=== PATIENT | female | born 1945 | race African-American/Black ===

== ENCOUNTER 2018-07-22 13:53 | Inpatient (IN) | payer MEDICARE, MEDICAID ==
[~2018-07-22] VITALS: Ht 320 cm; Wt 84.4 kg
[~2018-07-22 13:53] MED LIST: AMLO10TA4 PO; ASPI-1073 PO; CLON1PAT11 TD; DOCU-155 PO; GABA-529 PO; LISI-604 PO; OMEP40CA PO; SIMV20TA6 PO; TRAM50TA3 PO
[2018-07-22] MEDS ORDERED: FAMOTIDINE 20MG/2ML VIAL IV ONE (14:15)
[2018-07-22] MEDS ORDERED: ONDANSETRON HCL 4MG/2ML INJ IV STA (14:15)
[2018-07-22] MEDS ORDERED: SODIUM CHLORIDE 0.9% 1,000 ML IV ONE (14:15)
[2018-07-22] MEDS ORDERED: MORPHINE SULFATE 10 MG/ML CPJ IV ONE (14:15)
[2018-07-22 16:08] LABS: HEMATOCRIT. 44.1 % (36.0-48.0); HEMOGLOBIN. 14.7 g/dL (12.0-16.0); MEAN CORPUSCULAR HEMOGLOBIN 30.4 pg (28.0-32.0); MEAN CORPUSCULAR VOLUME 91.4 fL (81.0-99.0); MEAN PLATELET VOLUME 8.9 fl (7.4-10.4); PLATELET 247 x1000/uL (130-400); RED BLOOD CELL COUNT 4.83 mill/uL (4.2-5.4); RED CELL DISTRIBUTION WIDTH 14.8 % (11.6-14.6)
[2018-07-22 16:14] LABS: INR 1.1; PROTHROMBIN TIME 10.7 sec (9.1-11.1)
[2018-07-22 16:15] LABS: CHLORIDE 108 mEq/L (98-107)
[2018-07-22 16:18] LABS: ETHANOL BLOOD < 10 mg/dL
[2018-07-22] MEDS ORDERED: HYDRALAZINE 20MG/ML VIAL IV ONE (16:30)
[2018-07-22] MEDS ORDERED: ASPIRIN 81MG TABLET PO ONE (16:30)
[2018-07-22] MEDS ORDERED: ONDANSETRON HCL 4MG/2ML INJ IV ONE (16:30)
[2018-07-22 16:44] LABS: PLATELET ESTIMATE NORMAL
[2018-07-22 17:10] LABS: CLARITY URINE CLEAR (CLEAR); COLOR URINE YELLOW (YELLOW); KETONES URINE 2+ (NEGATIVE); LEUKOCYTE ESTERASE URINE 1+ (NEGATIVE); NITRITE URINE NEGATIVE (NEGATIVE); OCCULT BLOOD URINE 2+ (NEGATIVE); PROTEIN URINE 2+ (NEGATIVE); UROBILINOGEN URINE 0.2 E.U./dL (0.2-1.0)
[2018-07-22 17:23] LABS: *AMPHETAMINES SCREEN URINE NEGATIVE (NEGATIVE); *BARBITURATES SCREEN URINE NEGATIVE (NEGATIVE); *BENZODIAZEPINES SCREEN URINE NEGATIVE (NEGATIVE); *COCAINE SCREEN URINE NEGATIVE (NEGATIVE)
[2018-07-22 17:24] LABS: CANNABINOID URINE SCREEN PRESUMTIVE POSITIVE (NEGATIVE); METHADONE URINE SCREEN NEGATIVE (NEGATIVE); OPIATES URINE SCREEN PRESUMTIVE POSITIVE (NEGATIVE); PHENCYCLIDINE URINE SCREEN NEGATIVE (NEGATIVE)
[2018-07-22 18:00] VITALS: BP 175/71
[2018-07-22 19:00] VITALS: BP 175/71
[2018-07-22] MEDS ORDERED: ACETAMINOPHEN 650MG SUPP PR PRN (19:45)
[2018-07-22] MEDS ORDERED: DIPHENHYDRAMINE 50MG/ML VIAL IV PRN (19:45)
[2018-07-22] MEDS ORDERED: HYDRALAZINE 20MG/ML VIAL IV PRN (19:45)
[2018-07-22] MEDS ORDERED: KETOROLAC 15MG/ML VIAL IV PRN (19:45)
[2018-07-22 20:00] VITALS: BP 174/77
[2018-07-22] MEDS ORDERED: HYDROMORPHONE HCL/PF 2MG/ML CPJ IM PRN (22:00)
[2018-07-22] MEDS: PANTOPRAZOLE SODIUM 40 MG/VIAL IV SCH (23:05)
[2018-07-22] MEDS: DEXT 5%/0.45% NACL KCL 40MEQ/L 1,000 ML IV SCH (23:06)
[2018-07-22] MEDS: ONDANSETRON HCL 4MG/2ML INJ IV PRN (23:06)
[2018-07-23] VITALS: BP 135/69
[2018-07-23] MEDS: ONDANSETRON HCL 4MG/2ML INJ IV PRN ×2 (03:09→08:59)
[2018-07-23] MEDS: HYDROMORPHONE HCL/PF 2MG/ML CPJ IV PRN ×2 (03:40→10:48)
[2018-07-23 04:00] VITALS: BP 111/52
[2018-07-23 08:01] VITALS: BP 144/68
[2018-07-23 08:42] LABS: BASOPHILS % 0.2 % (0.0-2.0); HEMATOCRIT. 41.5 % (36.0-48.0); LYMPHOCYTES % 7.7 % (20.0-50.0); MEAN CORPUSCULAR HEMOGLOBIN 30.6 pg (28.0-32.0); MEAN PLATELET VOLUME 8.8 fl (7.4-10.4); MONOCYTES % 10.3 % (2.0-8.0); NEUTROPHILS % 81.8 % (40.0-76.0); PLATELET 273 x1000/uL (130-400); RED BLOOD CELL COUNT 4.56 mill/uL (4.2-5.4); RED CELL DISTRIBUTION WIDTH 14.9 % (11.6-14.6)
[2018-07-23] MEDS: PANTOPRAZOLE SODIUM 40 MG/VIAL IV SCH (08:59)
[2018-07-23 09:30] LABS: PHOSPHORUS 2.9 mg/dL (2.5-4.9)
[2018-07-23 12:13] VITALS: BP 160/60
[2018-07-23] MEDS: DEXT 5%/0.45% NACL KCL 40MEQ/L 1,000 ML IV SCH (13:34)
[2018-07-23] MEDS ORDERED: IPRATROPIUM/ALBUTEROL 0.5-3(2.5)MG/3ML NEB HHN NR (15:35)
[2018-07-23] MEDS ORDERED: IPRATROPIUM/ALBUTEROL 0.5-3(2.5)MG/3ML NEB HHN PRN (15:45)
[2018-07-23 16:00] VITALS: BP 157/79
== END 2018-07-23 18:01 | disposition left against medical advice (07) | DRG 392 ==
LOC: ER 14:02 → ENRESERV 15:40 → 6WST 16:38 → EDBEDREQ 16:40 → EDBEDREQTM 16:40 → 6WST 17:20
PROVIDERS: ADMIT Internal Medicine; ATTEND Internal Medicine
DX: K57.90 Diverticulosis of intestine, part unspecified, without perforation or abscess without bleeding (principal); E87.2 Acidosis; R65.10 Systemic inflammatory response syndrome (SIRS) of non-infectious origin without acute organ dysfunction; E87.6 Hypokalemia; I10 Essential (primary) hypertension; K29.50 Unspecified chronic gastritis without bleeding; K21.9 Gastro-esophageal reflux disease without esophagitis; Z79.82 Long term (current) use of aspirin; Z82.49 Family history of ischemic heart disease and other diseases of the circulatory system; Z85.118 Personal history of other malignant neoplasm of bronchus and lung; Z88.0 Allergy status to penicillin; Z88.6 Allergy status to analgesic agent; I25.2 Old myocardial infarction; Z79.899 Other long term (current) drug therapy; K52.9 Noninfective gastroenteritis and colitis, unspecified
CPT/HCPCS: 36415; 71045; 74176; 80048; 80305; 83735; 83880; 84100; 84484; 86850; 86870; 86900; 93005; 93970; 94640; 96361; 96374; 96375; 99285; C1893; C9113; G0482; J0360; J1170; J1885; J2270; J2405; J3490; J7030; J7620

== ENCOUNTER 2018-11-18 08:08 | Emergency (ER) | payer MEDICARE, MEDICAID ==
[~2018-11-18] VITALS: Ht 167.6 cm; Wt 70.0 kg
[2018-11-18] MEDS ORDERED: ONDANSETRON HCL 4MG/2ML INJ IV STA (08:57)
[2018-11-18] MEDS ORDERED: MORPHINE SULFATE 4 MG/ML CPJ (NOT FOR IM USE) IV STA (08:57)
[2018-11-18] MEDS ORDERED: DIATR MEGLU/DIATRIZOATE SOLN 30ML ONE (09:08)
[2018-11-18 09:24] LABS: CHLORIDE 103 mEq/L (98-107)
[2018-11-18 09:25] LABS: INR 1.1; PROTHROMBIN TIME 10.9 sec (9.6-11.0)
[2018-11-18 09:29] LABS: BASOPHILS % 0.8 % (0.0-2.0); EOSINOPHILS % 0.2 % (0.0-5.0); HEMATOCRIT. 46.5 % (36.0-48.0); LYMPHOCYTES % 8.5 % (20.0-50.0); MEAN CORPUSCULAR HEMOGLOBIN 27.1 pg (28.0-32.0); MEAN CORPUSCULAR VOLUME 84.1 fL (81.0-99.0); MEAN PLATELET VOLUME 8.3 fl (7.4-10.4); MONOCYTES % 7.1 % (2.0-8.0); NEUTROPHILS % 83.4 % (40.0-76.0); PLATELET 412 x1000/uL (130-400); RED BLOOD CELL COUNT 5.53 mill/uL (4.2-5.4); RED CELL DISTRIBUTION WIDTH 15.7 % (11.6-14.6)
[2018-11-18 11:38] LABS: CLARITY URINE CLOUDY (CLEAR); COLOR URINE YELLOW (YELLOW); KETONES URINE TRACE (NEGATIVE); LEUKOCYTE ESTERASE URINE NEGATIVE (NEGATIVE); NITRITE URINE NEGATIVE (NEGATIVE); OCCULT BLOOD URINE TRACE (NEGATIVE); PROTEIN URINE 2+ (NEGATIVE); SPECIFIC GRAVITY URINE 1.028 (1.005-1.030)
[2018-11-18] MEDS ORDERED: IOHEXOL-300 100 ML BOTTLE ONE (13:05)
[2018-11-18 13:34] VITALS: BP 121/75
== END 2018-11-18 13:34 | disposition home or self-care (01) ==
LOC: ER 08:08
DX: R53.1 Weakness (principal); R11.2 Nausea with vomiting, unspecified; R10.30 Lower abdominal pain, unspecified; I10 Essential (primary) hypertension; I25.2 Old myocardial infarction; Z90.49 Acquired absence of other specified parts of digestive tract; Z88.0 Allergy status to penicillin; Z88.5 Allergy status to narcotic agent; Z79.899 Other long term (current) drug therapy
CPT/HCPCS: 36415; 74177; 80053; 81003; 83690; 84484; 85025; 85610; 96374; 96375; 99284; J2270; J2405; Q9963; Q9967

== ENCOUNTER 2018-11-24 10:24 | Inpatient (IN) | payer MEDICARE, MEDICAID ==
[~2018-11-24] VITALS: Ht 157.5 cm; Wt 61.2 kg
[2018-11-24] MEDS ORDERED: ONDANSETRON HCL 4MG/2ML INJ IV STA (10:47)
[2018-11-24] MEDS ORDERED: SODIUM CHLORIDE 0.9% 1,000 ML IV ONE (10:47)
[2018-11-24] MEDS ORDERED: MORPHINE SULFATE 4 MG/ML CPJ (NOT FOR IM USE) IV STA (10:47)
[2018-11-24 11:08] LABS: BASOPHILS % 0.7 % (0.0-2.0); EOSINOPHILS % 0.1 % (0.0-5.0); HEMOGLOBIN. 15.9 g/dL (12.0-16.0); LYMPHOCYTES % 7.5 % (20.0-50.0); MEAN CORPUSCULAR HEMOGLOBIN 27.8 pg (28.0-32.0); MEAN CORPUSCULAR VOLUME 83.8 fL (81.0-99.0); MEAN PLATELET VOLUME 8.5 fl (7.4-10.4); MONOCYTES % 3.8 % (2.0-8.0); NEUTROPHILS % 87.9 % (40.0-76.0); PLATELET 413 x1000/uL (130-400); RED BLOOD CELL COUNT 5.73 mill/uL (4.2-5.4); RED CELL DISTRIBUTION WIDTH 16.3 % (11.6-14.6)
[2018-11-24 11:56] LABS: CHLORIDE 103 mEq/L (98-107)
[2018-11-24 11:58] LABS: INR 1.1; PROTHROMBIN TIME 11.4 sec (9.6-11.0)
[2018-11-24] MEDS ORDERED: ALBUTEROL (0.083%) 2.5MG/3ML NEB HHN ONE (12:15)
[2018-11-24] MEDS ORDERED: SODIUM BICARBONATE 8.4% 1 MEQ/ML 50ML SYR IV ONE (12:15)
[2018-11-24] MEDS ORDERED: INSULIN REGULAR (HUMULIN R) 300UNITS/3ML IV ONE (12:15)
[2018-11-24] MEDS ORDERED: DEXTROSE 50% WATER 50ML SYRINGE IV ONE (12:15)
[2018-11-24] MEDS ORDERED: HYDRALAZINE 20MG/ML VIAL IV ONE (12:30)
[2018-11-24] MEDS ORDERED: LEVOFLOXACIN 750MG PREMIX 150 ML IV ONE (13:00)
[2018-11-24] MEDS ORDERED: ALBUTEROL (0.5%) 2.5MG/0.5ML NEB HHN ONE (13:21)
[2018-11-24] MEDS ORDERED: ALBUTEROL (0.083%) 2.5MG/3ML NEB ONE (13:21)
[2018-11-24] MEDS ORDERED: LEVOFLOXACIN 250MG PREMIX 50 ML IV SCH (13:30)
[2018-11-24] MEDS ORDERED: ONDANSETRON HCL 4MG/2ML INJ IV ONE (13:45)
[2018-11-24] MEDS ORDERED: HYDRALAZINE 20MG/ML VIAL IV PRN (14:15)
[2018-11-24] MEDS ORDERED: DIPHENHYDRAMINE 50MG/ML VIAL IV PRN (14:15)
[2018-11-24] MEDS ORDERED: IPRATROPIUM/ALBUTEROL 0.5-3(2.5)MG/3ML NEB INH PRN (14:15)
[2018-11-24] MEDS ORDERED: LORAZEPAM 2MG/ML CPJ IV PRN (14:15)
[2018-11-24] MEDS ORDERED: PANTOPRAZOLE SODIUM 40 MG/VIAL IV SCH ×2 (14:15→21:00)
[2018-11-24] MEDS ORDERED: CLONIDINE 0.1MG TABLET PO PRN (14:15)
[2018-11-24] MEDS ORDERED: ACETAMINOPHEN 325MG TABLET PO PRN (14:15)
[2018-11-24] MEDS ORDERED: MAGNESIUM/ALUMINUM HYDROXIDE/SIMETHICONE 30ML UDC PO PRN (14:15)
[2018-11-24] MEDS ORDERED: HYDROMORPHONE HCL/PF 2MG/ML CPJ IV PRN (14:15)
[2018-11-24] MEDS ORDERED: GUAIFENESIN 200MG/10ML SUGAR FREE UDC PO PRN (14:15)
[2018-11-24 14:17] LABS: CLARITY URINE CLEAR (CLEAR); COLOR URINE YELLOW (YELLOW); KETONES URINE 2+ (NEGATIVE); LEUKOCYTE ESTERASE URINE NEGATIVE (NEGATIVE); NITRITE URINE NEGATIVE (NEGATIVE); OCCULT BLOOD URINE NEGATIVE (NEGATIVE); PROTEIN URINE 2+ (NEGATIVE); SPECIFIC GRAVITY URINE 1.025 (1.005-1.030); UROBILINOGEN URINE 0.2 E.U./dL (0.2-1.0)
[2018-11-24] MEDS: ONDANSETRON HCL 4MG/2ML INJ IV PRN ×2 (16:44→22:47)
[2018-11-24 17:00] VITALS: BP 124/70
[2018-11-24] MEDS: DEXT 5%/0.45% NACL 1000ML 1,000 ML IV SCH ×2 (17:22→22:50)
[2018-11-24] MEDS ORDERED: ONDANSETRON HCL 4MG/2ML INJ IV PRN (17:45)
[2018-11-24] MEDS ORDERED: METO-396 MT (17:54)
[2018-11-24] MEDS ORDERED: ALBU18HF2 IH (17:54)
[2018-11-24] MEDS ORDERED: FURO20TA4 MT (17:54)
[2018-11-24] MEDS ORDERED: SPIR25TA6 MT (17:54)
[2018-11-24] MEDS ORDERED: SUCR1TAB MT (17:54)
[2018-11-24] MEDS ORDERED: HYDR-4135 MT (17:54)
[2018-11-24] MEDS ORDERED: LEVO250T58 MT (17:54)
[2018-11-24] MEDS ORDERED: LABE300T3 MT (17:54)
[2018-11-24] MEDS ORDERED: VALS40TA11 MT (17:54)
[2018-11-24] MEDS ORDERED: ONDA4SOL PO (17:54)
[2018-11-24 20:00] VITALS: BP 156/78
[2018-11-24] MEDS ORDERED: LISINOPRIL 20MG TABLET PO SCH (21:00)
[2018-11-24] MEDS: AMLODIPINE 5MG TABLET PO SCH (22:50)
[2018-11-24] MEDS: LISINOPRIL 10MG TABLET PO SCH (22:50)
[2018-11-24] MEDS: PANTOPRAZOLE SODIUM 40 MG/VIAL IV SCH (23:13)
[2018-11-24] MEDS: METOCLOPRAMIDE HCL 10MG/2ML VIAL IV PRN (23:46)
[2018-11-25] VITALS: BP 152/83
[2018-11-25] MEDS ORDERED: PANTOPRAZOLE SODIUM 40 MG/VIAL IV SCH (02:15)
[2018-11-25 04:00] VITALS: BP 132/89
[2018-11-25 06:13] LABS: BASOPHILS % 0.6 % (0.0-2.0); HEMATOCRIT. 42.2 % (36.0-48.0); HEMOGLOBIN. 13.8 g/dL (12.0-16.0); LYMPHOCYTES % 10.6 % (20.0-50.0); MEAN CORPUSCULAR HEMOGLOBIN 27.2 pg (28.0-32.0); MEAN CORPUSCULAR VOLUME 83.4 fL (81.0-99.0); MEAN PLATELET VOLUME 8.4 fl (7.4-10.4); MONOCYTES % 12.5 % (2.0-8.0); NEUTROPHILS % 76.3 % (40.0-76.0); PLATELET 349 x1000/uL (130-400); RED BLOOD CELL COUNT 5.06 mill/uL (4.2-5.4); RED CELL DISTRIBUTION WIDTH 16.2 % (11.6-14.6)
[2018-11-25 06:21] LABS: CHLORIDE 106 mEq/L (98-107)
[2018-11-25 06:34] LABS: PHOSPHORUS 3.3 mg/dL (2.5-4.9)
[2018-11-25] MEDS: DEXT 5%/0.45% NACL 1000ML 1,000 ML IV SCH ×3 (06:54→20:42)
[2018-11-25 08:00] VITALS: BP 155/68
[2018-11-25] MEDS: PANTOPRAZOLE SODIUM 40 MG/VIAL IV SCH ×2 (08:07→20:42)
[2018-11-25] MEDS: AMLODIPINE 5MG TABLET PO SCH ×2 (08:07→20:41)
[2018-11-25] MEDS: LISINOPRIL 10MG TABLET PO SCH ×2 (08:08→20:41)
[2018-11-25] MEDS: METOCLOPRAMIDE HCL 10MG/2ML VIAL IV PRN (10:27)
[2018-11-25] MEDS ORDERED: IPRATROPIUM/ALBUTEROL 0.5-3(2.5)MG/3ML NEB HHN PRN (11:00)
[2018-11-25 12:00] VITALS: BP 145/74
[2018-11-25] MEDS: IPRATROPIUM/ALBUTEROL 0.5-3(2.5)MG/3ML NEB HHN SCH ×2 (12:12→20:20)
[2018-11-25] MEDS: LEVOFLOXACIN 250MG PREMIX 50 ML IV SCH (12:45)
[2018-11-25] MEDS ORDERED: ACETYLCYSTEINE 100MG/ML 10% VIAL 4ML INH SCH (14:00)
[2018-11-25] MEDS ORDERED: MIDAZOLAM HCL 5 MG/5 ML VIAL ONE (14:00)
[2018-11-25] MEDS ORDERED: FENTANYL CITRATE/PF 50MCG/ML 2ML VIAL ONE (14:00)
[2018-11-25] MEDS ORDERED: MIDAZOLAM HCL 5 MG/5 ML VIAL IV PRN (14:14)
[2018-11-25] MEDS ORDERED: FENTANYL CITRATE/PF 50MCG/ML 2ML VIAL IV PRN (14:15)
[2018-11-25] MEDS ORDERED: SIMETHICONE 40 MG/0.6 ML 30ML ONE (14:16)
[2018-11-25 16:00] VITALS: BP 150/78
[2018-11-25] MEDS: METRONIDAZOLE 500 MG PREMIX 100 ML IV SCH ×2 (16:25→21:57)
[2018-11-25] MEDS ORDERED: BACTERIOSTATIC SODIUM CHLORIDE 0.9% 30ML VIAL IJ ONE (16:40)
[2018-11-25 20:00] VITALS: BP 138/63
[2018-11-25] MEDS: GUAIFENESIN 600MG ER TABLET PO SCH (20:42)
[2018-11-26 00:06] VITALS: BP 156/79
[2018-11-26 04:00] VITALS: BP 167/68
[2018-11-26] MEDS: DEXT 5%/0.45% NACL 1000ML 1,000 ML IV SCH (06:02)
[2018-11-26] MEDS: METRONIDAZOLE 500 MG PREMIX 100 ML IV SCH (06:02)
[2018-11-26] MEDS ORDERED: OMEPRAZOLE 20MG CAPSULE EXTENDED RELEASE PO SCH (07:40)
[2018-11-26 08:00] VITALS: BP 122/60
[2018-11-26] MEDS: LISINOPRIL 10MG TABLET PO SCH (08:43)
[2018-11-26] MEDS: AMLODIPINE 5MG TABLET PO SCH (08:43)
[2018-11-26] MEDS: IPRATROPIUM/ALBUTEROL 0.5-3(2.5)MG/3ML NEB HHN SCH (08:46)
[2018-11-26] MEDS: PANTOPRAZOLE SODIUM 40 MG/VIAL IV SCH (08:54)
[2018-11-26] MEDS: GUAIFENESIN 600MG ER TABLET PO SCH (08:54)
[2018-11-26 12:00] VITALS: BP 140/78
[2018-11-26 13:14] VITALS: BP 140/78
[2018-11-26] MEDS: LEVOFLOXACIN 250MG PREMIX 50 ML IV SCH (13:58)
== END 2018-11-26 15:00 | disposition home or self-care (01) | DRG 871 ==
LOC: ER 10:24 → 7WST 13:00 → EDBEDREQ 13:03 → ENRESERV 14:21
PROVIDERS: ADMIT Internal Medicine; ATTEND Internal Medicine
PROC: 0DB78ZX Excision of Stomach, Pylorus, Via Natural or Artificial Opening Endoscopic, Diagnostic (ICD-10-PCS; principal; 2018-11-25)
PROC: 0DB58ZX Excision of Esophagus, Via Natural or Artificial Opening Endoscopic, Diagnostic (ICD-10-PCS; 2018-11-25)
DX: A41.9 Sepsis, unspecified organism (principal); J96.00 Acute respiratory failure, unspecified whether with hypoxia or hypercapnia; J69.0 Pneumonitis due to inhalation of food and vomit; K22.6 Gastro-esophageal laceration-hemorrhage syndrome; K22.10 Ulcer of esophagus without bleeding; N17.9 Acute kidney failure, unspecified; C34.90 Malignant neoplasm of unspecified part of unspecified bronchus or lung; K57.90 Diverticulosis of intestine, part unspecified, without perforation or abscess without bleeding; R59.1 Generalized enlarged lymph nodes; E78.00 Pure hypercholesterolemia, unspecified; E87.5 Hyperkalemia; I10 Essential (primary) hypertension; E86.0 Dehydration; I25.2 Old myocardial infarction; K21.0 Gastro-esophageal reflux disease with esophagitis; K29.70 Gastritis, unspecified, without bleeding; K29.80 Duodenitis without bleeding; K44.9 Diaphragmatic hernia without obstruction or gangrene; Z82.49 Family history of ischemic heart disease and other diseases of the circulatory system; Z87.11 Personal history of peptic ulcer disease; Z87.19 Personal history of other diseases of the digestive system; Z87.891 Personal history of nicotine dependence; Z90.49 Acquired absence of other specified parts of digestive tract; Z90.710 Acquired absence of both cervix and uterus; Z88.0 Allergy status to penicillin; Z88.5 Allergy status to narcotic agent; Z88.8 Allergy status to other drugs, medicaments and biological substances; Z79.82 Long term (current) use of aspirin
CPT/HCPCS: 36415; 71045; 71250; 83735; 84100; 86677; 88305; 88312; 93005; 93970; 94640; 96374; 96375; 99291; C1893; C9113; J0360; J1815; J1956; J2250; J2270; J2405; J2765; J3010; J3490; J7030; J7608; J7611; J7620

== ENCOUNTER 2019-07-02 10:04 | Inpatient (IN) | payer MEDICARE, MEDICAID ==
[~2019-07-02] VITALS: Ht 162.6 cm; Wt 87.1 kg
[~2019-07-02 10:04] MED LIST changes: +ALBU18HF2 IH; +FURO20TA4 MT; +HYDR-4135 MT; +LABE300T3 MT; +LEVO250T58 MT; +METO-396 MT; +ONDA4SOL PO; +SPIR25TA6 MT; +SUCR1TAB MT; +VALS40TA11 MT
[2019-07-02] MEDS ORDERED: SODIUM CHLORIDE 0.9% 1,000 ML IV ONE ×2 (10:36→11:52)
[2019-07-02 11:04] LABS: HEMATOCRIT. 45.2 % (36.0-48.0); HEMOGLOBIN. 14.8 g/dL (12.0-16.0); MEAN CORPUSCULAR HEMOGLOBIN 27.6 pg (28.0-32.0); MEAN CORPUSCULAR VOLUME 84.5 fL (81.0-99.0); PLATELET 306 x1000/uL (130-400); RED BLOOD CELL COUNT 5.35 mill/uL (4.2-5.4); RED CELL DISTRIBUTION WIDTH 16.2 % (11.6-14.6)
[2019-07-02 11:16] LABS: PROTHROMBIN TIME 10.2 sec (9.6-11.0)
[2019-07-02] MEDS ORDERED: VANCOMYCIN 1 G PREMIX 200 ML IV ONE (12:00)
[2019-07-02 12:14] LABS: CHLORIDE 107 mEq/L (98-107)
[2019-07-02 12:17] LABS: CLARITY URINE CLEAR (CLEAR); COLOR URINE YELLOW (YELLOW); KETONES URINE NEGATIVE (NEGATIVE); LEUKOCYTE ESTERASE URINE TRACE (NEGATIVE); NITRITE URINE NEGATIVE (NEGATIVE); OCCULT BLOOD URINE NEGATIVE (NEGATIVE); PROTEIN URINE NEGATIVE (NEGATIVE); SPECIFIC GRAVITY URINE 1.017 (1.005-1.030); UROBILINOGEN URINE 0.2 E.U./dL (0.2-1.0)
[2019-07-02] MEDS: MEROPENEM 1,000 MG in SODIUM CHLORIDE 0.9% 100 ML IV SCH ×2 (12:53→23:21)
[2019-07-02 13:33] LABS: NUCLEATED RED BLOOD CELLS 1 /100 WBC
[2019-07-02 13:34] LABS: PLATELET ESTIMATE NORMAL
[2019-07-02 14:30] VITALS: BP 130/76
[2019-07-02] MEDS ORDERED: CRES10 PO (15:14)
[2019-07-02] MEDS ORDERED: LATA2.5D2 RIGHTEYE (15:14)
[2019-07-02] MEDS ORDERED: TOPUD PO (15:14)
[2019-07-02] MEDS ORDERED: RANI150C12 MT (15:14)
[2019-07-02] MEDS ORDERED: BRIM5DRO6 EACHEYE (15:14)
[2019-07-02] MEDS ORDERED: DEXA2TAB PO (15:14)
[2019-07-02 16:00] VITALS: BP 125/70
[2019-07-02] MEDS ORDERED: IPRATROPIUM/ALBUTEROL 0.5-3(2.5)MG/3ML NEB NEB PRN (16:45)
[2019-07-02] MEDS ORDERED: DIPHENHYDRAMINE 50MG/ML VIAL IV PRN (16:45)
[2019-07-02] MEDS ORDERED: ONDANSETRON HCL 4MG/2ML INJ IV PRN (16:45)
[2019-07-02] MEDS ORDERED: MAGNESIUM/ALUMINUM HYDROXIDE/SIMETHICONE 30ML UDC PO PRN (16:45)
[2019-07-02] MEDS ORDERED: CLONIDINE 0.1MG TABLET PO PRN (16:45)
[2019-07-02] MEDS ORDERED: GUAIFENESIN 200MG/10ML SUGAR FREE UDC PO PRN (16:45)
[2019-07-02 18:00] VITALS: BP 132/71
[2019-07-02] MEDS: PANTOPRAZOLE SODIUM 40 MG/VIAL IV SCH (18:51)
[2019-07-02 20:00] VITALS: BP 128/71
[2019-07-02] MEDS: DEXAMETHASONE 1MG TABLET PO SCH (20:36)
[2019-07-02] MEDS ORDERED: FAMOTIDINE 20MG/2ML VIAL IV SCH (21:00)
[2019-07-02] MEDS: IPRATROPIUM/ALBUTEROL 0.5-3(2.5)MG/3ML NEB HHN SCH (21:02)
[2019-07-02] MEDS: BRIMONIDINE 0.2% OPHTH DROPS 5ML BOTHEYE SCH (21:46)
[2019-07-02] MEDS: LATANOPROST 0.005% OPHTH DROPS 2.5ML BOTHEYE SCH (21:46)
[2019-07-02] MEDS: LEVOFLOXACIN 500MG PREMIX 100 ML IV SCH (21:48)
[2019-07-02] MEDS: SODIUM CHLORIDE 0.9% INJ 3ML FLUSH IVF SCH (21:49)
[2019-07-02 22:00] VITALS: BP 130/77
[2019-07-03] VITALS (10 sets, daily range): BP systolic 117–162; BP diastolic 62–96
[2019-07-03] MEDS: IPRATROPIUM/ALBUTEROL 0.5-3(2.5)MG/3ML NEB HHN SCH ×4 (02:09→20:20)
[2019-07-03] MEDS: BRIMONIDINE 0.2% OPHTH DROPS 5ML BOTHEYE SCH ×3 (05:22→21:39)
[2019-07-03] MEDS: SODIUM CHLORIDE 0.9% INJ 3ML FLUSH IVF SCH ×3 (05:23→21:39)
[2019-07-03] MEDS: MEROPENEM 1,000 MG in SODIUM CHLORIDE 0.9% 100 ML IV SCH (06:00)
[2019-07-03] MEDS: PANTOPRAZOLE SODIUM 40 MG/VIAL IV SCH ×2 (06:25→17:50)
[2019-07-03] MEDS ORDERED: DEXAMETHASONE 2MG TABLET PO SCH (09:00)
[2019-07-03 09:34] LABS: HEMATOCRIT. 41.1 % (36.0-48.0); HEMOGLOBIN. 13.1 g/dL (12.0-16.0); MEAN CORPUSCULAR HEMOGLOBIN 27.3 pg (28.0-32.0); MEAN CORPUSCULAR VOLUME 85.6 fL (81.0-99.0); MEAN PLATELET VOLUME 7.9 fl (7.4-10.4); PLATELET 288 x1000/uL (130-400); RED CELL DISTRIBUTION WIDTH 16.3 % (11.6-14.6)
[2019-07-03] MEDS: DEXAMETHASONE 1MG TABLET PO SCH ×2 (09:34→21:39)
[2019-07-03 09:51] LABS: CHLORIDE 110 mEq/L (98-107)
[2019-07-03] MEDS: ACETAMINOPHEN 325MG TABLET PO PRN ×2 (09:59→20:08)
[2019-07-03] MEDS: LEVOFLOXACIN 500MG PREMIX 100 ML IV SCH (17:50)
[2019-07-03] MEDS: LATANOPROST 0.005% OPHTH DROPS 2.5ML BOTHEYE SCH (21:00)
[2019-07-04] VITALS (11 sets, daily range): BP systolic 120–164; BP diastolic 57–93
[2019-07-04] MEDS: IPRATROPIUM/ALBUTEROL 0.5-3(2.5)MG/3ML NEB HHN SCH ×5 (01:25→20:18)
[2019-07-04] MEDS: BRIMONIDINE 0.2% OPHTH DROPS 5ML BOTHEYE SCH ×3 (05:50→22:05)
[2019-07-04] MEDS: SODIUM CHLORIDE 0.9% INJ 3ML FLUSH IVF SCH ×3 (06:12→22:06)
[2019-07-04] MEDS: PANTOPRAZOLE SODIUM 40 MG/VIAL IV SCH ×2 (06:16→17:43)
[2019-07-04] MEDS: DEXAMETHASONE 1MG TABLET PO SCH ×2 (08:12→22:06)
[2019-07-04] MEDS: ACETAMINOPHEN 325MG TABLET PO PRN (11:00)
[2019-07-04 13:10] LABS: PLATELET ESTIMATE NORMAL
[2019-07-04] MEDS: GUAIFENESIN 600MG ER TABLET PO SCH ×2 (14:03→22:05)
[2019-07-04] MEDS: LEVOFLOXACIN 500MG PREMIX 100 ML IV SCH (17:44)
[2019-07-04] MEDS: LATANOPROST 0.005% OPHTH DROPS 2.5ML BOTHEYE SCH (22:05)
[2019-07-05] VITALS (8 sets, daily range): BP systolic 122–163; BP diastolic 70–91
[2019-07-05] MEDS: PANTOPRAZOLE SODIUM 40 MG/VIAL IV SCH (06:39)
[2019-07-05] MEDS: BRIMONIDINE 0.2% OPHTH DROPS 5ML BOTHEYE SCH ×2 (06:40→14:27)
[2019-07-05] MEDS: SODIUM CHLORIDE 0.9% INJ 3ML FLUSH IVF SCH ×2 (06:40→14:27)
[2019-07-05] MEDS: IPRATROPIUM/ALBUTEROL 0.5-3(2.5)MG/3ML NEB HHN SCH ×2 (08:14→14:32)
[2019-07-05] MEDS: GUAIFENESIN 600MG ER TABLET PO SCH (09:24)
[2019-07-05] MEDS: DEXAMETHASONE 1MG TABLET PO SCH (09:24)
[2019-07-05] MEDS: ACETAMINOPHEN 325MG TABLET PO PRN (16:07)
== END 2019-07-05 18:25 | disposition home or self-care (01) | DRG 871 ==
LOC: ER 10:04 → EDBEDREQTM 12:32 → EDBEDREQ 12:32 → ENRESERV 13:22 → 5EST 14:13
PROVIDERS: ADMIT Internal Medicine; ATTEND Internal Medicine
DX: A41.9 Sepsis, unspecified organism (principal); G93.41 Metabolic encephalopathy; J18.1 Lobar pneumonia, unspecified organism; J96.00 Acute respiratory failure, unspecified whether with hypoxia or hypercapnia; E87.2 Acidosis; I10 Essential (primary) hypertension; K29.70 Gastritis, unspecified, without bleeding; E11.9 Type 2 diabetes mellitus without complications; K57.90 Diverticulosis of intestine, part unspecified, without perforation or abscess without bleeding; E78.00 Pure hypercholesterolemia, unspecified; E78.5 Hyperlipidemia, unspecified; M19.90 Unspecified osteoarthritis, unspecified site; Z85.118 Personal history of other malignant neoplasm of bronchus and lung; Z85.72 Personal history of non-Hodgkin lymphomas; Z87.11 Personal history of peptic ulcer disease; Z87.19 Personal history of other diseases of the digestive system; Z90.2 Acquired absence of lung [part of]; Z90.49 Acquired absence of other specified parts of digestive tract; Z90.710 Acquired absence of both cervix and uterus; Z88.6 Allergy status to analgesic agent; Z88.0 Allergy status to penicillin; Z91.048 Other nonmedicinal substance allergy status; Z79.2 Long term (current) use of antibiotics; Z79.82 Long term (current) use of aspirin; Z79.84 Long term (current) use of oral hypoglycemic drugs
CPT/HCPCS: 36415; 71045; 80048; 81003; 82962; 83605; 84145; 84484; 87804; 93005; 93970; 97162; 99291; C1893; C9113; J1200; J1956; J2185; J2405; J3370; J7030; J7050; J7620; J8540

== ENCOUNTER 2019-08-11 17:44 | Inpatient (IN) | payer MEDICARE, MEDICAID ==
[~2019-08-11] VITALS: Ht 160 cm; Wt 87.5 kg
[~2019-08-11 17:44] MED LIST changes: -ALBU18HF2 IH; +BRIM5DRO6 EACHEYE; -CLON1PAT11 TD; +CRES10 PO; +DEXA2TAB PO; -DOCU-155 PO; -FURO20TA4 MT; -GABA-529 PO; -HYDR-4135 MT; -LABE300T3 MT; +LATA2.5D2 RIGHTEYE; -LEVO250T58 MT; -LISI-604 PO; -ONDA4SOL PO; +RANI150C12 MT; -SIMV20TA6 PO; -SPIR25TA6 MT; -SUCR1TAB MT; +TOPUD PO
[2019-08-11] MEDS ORDERED: MORPHINE SULFATE 4 MG/ML CPJ (NOT FOR IM USE) IV STA (18:14)
[2019-08-11] MEDS ORDERED: ONDANSETRON HCL 4MG/2ML INJ IV STA (18:14)
[2019-08-11] MEDS ORDERED: SODIUM CHLORIDE 0.9% 1,000 ML IV ONE (18:14)
[2019-08-11] MEDS ORDERED: VISCOUS LIDOCAINE 2% 15 ML UDC PO ONE (18:15)
[2019-08-11] MEDS ORDERED: MAGNESIUM/ALUMINUM HYDROXIDE/SIMETHICONE 30ML UDC PO ONE (18:15)
[2019-08-11 18:51] LABS: HEMATOCRIT. 42.1 % (36.0-48.0); HEMOGLOBIN. 13.7 g/dL (12.0-16.0); MEAN CORPUSCULAR HEMOGLOBIN 27.9 pg (28.0-32.0); MEAN CORPUSCULAR VOLUME 85.7 fL (81.0-99.0); MEAN PLATELET VOLUME 7.9 fl (7.4-10.4); PLATELET 376 x1000/uL (130-400); RED BLOOD CELL COUNT 4.91 mill/uL (4.2-5.4); RED CELL DISTRIBUTION WIDTH 17.4 % (11.6-14.6)
[2019-08-11 18:52] LABS: CHLORIDE 107 mEq/L (98-107)
[2019-08-11 19:08] LABS: PLATELET ESTIMATE NORMAL
[2019-08-11 21:33] LABS: CLARITY URINE TURBID (CLEAR); COLOR URINE YELLOW (YELLOW); KETONES URINE NEGATIVE (NEGATIVE); LEUKOCYTE ESTERASE URINE 2+ (NEGATIVE); NITRITE URINE POSITIVE (NEGATIVE); OCCULT BLOOD URINE 2+ (NEGATIVE); PROTEIN URINE TRACE (NEGATIVE); SPECIFIC GRAVITY URINE 1.022 (1.005-1.030); UROBILINOGEN URINE 0.2 E.U./dL (0.2-1.0)
[2019-08-12] MEDS ORDERED: CEFTRIAXONE 1 G PREMIX 50 ML IV NR (00:15)
[2019-08-12] MEDS ORDERED: FAMOTIDINE 20MG/2ML VIAL IV ONE (01:00)
[2019-08-12] MEDS ORDERED: MAGNESIUM/ALUMINUM HYDROXIDE/SIMETHICONE 30ML UDC PO PRN (01:30)
[2019-08-12] MEDS ORDERED: ONDANSETRON HCL 4MG/2ML INJ IV PRN (01:30)
[2019-08-12] MEDS ORDERED: IPRATROPIUM/ALBUTEROL 0.5-3(2.5)MG/3ML NEB HHN PRN (01:30)
[2019-08-12] MEDS ORDERED: DIPHENHYDRAMINE 50MG/ML VIAL IV PRN (01:30)
[2019-08-12] MEDS ORDERED: ACETAMINOPHEN 325MG TABLET PO PRN (01:30)
[2019-08-12] MEDS ORDERED: CEFTRIAXONE 1 G PREMIX 50 ML IV SCH ×2 (01:30→22:00)
[2019-08-12] MEDS ORDERED: NA PHOS,M-B/NA PHOS,DI-BA ENEMA 118ML PR PRN (01:30)
[2019-08-12] MEDS ORDERED: PANTOPRAZOLE SODIUM 40 MG/VIAL IV NR (02:30)
[2019-08-12] MEDS ORDERED: SODIUM CHLORIDE 0.9% 1,000 ML IV SCH ×2 (02:30→21:00)
[2019-08-12 06:51] LABS: HEMATOCRIT. 42.1 % (36.0-48.0); MEAN CORPUSCULAR HEMOGLOBIN 28.8 pg (28.0-32.0); MEAN CORPUSCULAR VOLUME 86.7 fL (81.0-99.0); MEAN PLATELET VOLUME 7.9 fl (7.4-10.4); PLATELET 324 x1000/uL (130-400); RED BLOOD CELL COUNT 4.85 mill/uL (4.2-5.4)
[2019-08-12 07:03] LABS: CHLORIDE 109 mEq/L (98-107)
[2019-08-12 10:35] LABS: PLATELET ESTIMATE NORMAL
[2019-08-12 11:14] VITALS: BP 150/95
[2019-08-12] MEDS: ENOXAPARIN 40MG/0.4ML SYR SUBCUT SCH (11:38)
[2019-08-12 12:00] VITALS: BP 105/90
[2019-08-12 16:00] VITALS: BP 135/84
[2019-08-12 20:00] VITALS: BP 143/81
[2019-08-12] MEDS: BRIMONIDINE 0.2% OPHTH DROPS 5ML BOTHEYE SCH (21:51)
[2019-08-12] MEDS: LATANOPROST 0.005% OPHTH DROPS 2.5ML BOTHEYE SCH (21:52)
[2019-08-12] MEDS: AMLODIPINE 2.5MG TABLET PO SCH (21:59)
[2019-08-13] VITALS: BP 121/90
[2019-08-13 04:00] VITALS: BP 132/85
[2019-08-13] MEDS: BRIMONIDINE 0.2% OPHTH DROPS 5ML BOTHEYE SCH ×3 (05:41→21:29)
[2019-08-13 08:00] VITALS: BP 145/82
[2019-08-13] MEDS: AMLODIPINE 2.5MG TABLET PO SCH ×2 (09:00→09:31)
[2019-08-13] MEDS: DEXAMETHASONE 2MG TABLET PO SCH ×2 (09:00→09:30)
[2019-08-13] MEDS: PANTOPRAZOLE SODIUM 40 MG/VIAL IV SCH ×2 (09:00→09:30)
[2019-08-13] MEDS: ENOXAPARIN 40MG/0.4ML SYR SUBCUT SCH (11:00)
[2019-08-13 12:11] VITALS: BP 95/41
[2019-08-13 16:00] VITALS: BP 147/90
[2019-08-13 20:00] VITALS: BP 132/80
[2019-08-13] MEDS: METOPROLOL TARTRATE 25MG TABLET PO SCH ×2 (21:00→21:31)
[2019-08-13] MEDS: LATANOPROST 0.005% OPHTH DROPS 2.5ML BOTHEYE SCH (21:29)
[2019-08-14] VITALS (7 sets, daily range): BP systolic 125–143; BP diastolic 65–88
[2019-08-14] MEDS: BRIMONIDINE 0.2% OPHTH DROPS 5ML BOTHEYE SCH ×2 (06:03→16:55)
[2019-08-14] MEDS ORDERED: OMEPRAZOLE 20MG CAPSULE EXTENDED RELEASE PO SCH (06:45)
[2019-08-14] MEDS ORDERED: CEFTRIAXONE SODIUM 1 G/VIAL IM SCH (09:00)
[2019-08-14] MEDS: METOPROLOL TARTRATE 25MG TABLET PO SCH (10:08)
[2019-08-14] MEDS: DEXAMETHASONE 2MG TABLET PO SCH (10:08)
[2019-08-14] MEDS: ENOXAPARIN 40MG/0.4ML SYR SUBCUT SCH (13:09)
== END 2019-08-14 20:41 | disposition home or self-care (01) | DRG 871 ==
LOC: ER 17:44 → 5WST 08-12 01:01 → ENRESERV 08-12 07:50
PROVIDERS: ADMIT Internal Medicine; ATTEND Internal Medicine
DX: A41.9 Sepsis, unspecified organism (principal); G93.41 Metabolic encephalopathy; N39.0 Urinary tract infection, site not specified; N17.9 Acute kidney failure, unspecified; I11.9 Hypertensive heart disease without heart failure; R74.0 Nonspecific elevation of levels of transaminase and lactic acid dehydrogenase [LDH]; Z96.659 Presence of unspecified artificial knee joint; B96.20 Unspecified Escherichia coli [E. coli] as the cause of diseases classified elsewhere; M19.90 Unspecified osteoarthritis, unspecified site; R73.9 Hyperglycemia, unspecified; E78.00 Pure hypercholesterolemia, unspecified; E86.0 Dehydration; Z85.118 Personal history of other malignant neoplasm of bronchus and lung; Z87.19 Personal history of other diseases of the digestive system; Z88.6 Allergy status to analgesic agent; Z88.0 Allergy status to penicillin; Z86.73 Personal history of transient ischemic attack (TIA), and cerebral infarction without residual deficits
CPT/HCPCS: 36415; 70551; 71045; 80048; 80053; 81003; 83880; 84484; 85025; 87077; 87186; 93005; 99285; C1893; C9113; J0696; J1650; J2405; J3490; J7030; J8540